=== PATIENT | female | born 1950 | race Caucasian/White ===

== ENCOUNTER 2016-08-08 16:39 | Emergency (ER) | payer MEDICARE, OTHER ==
[~2016-08-08 16:39] MED LIST: ALLEGRA ALLERG180 M1 PO; ANUSOL-HC30 GM APL; ATENOLOL; ATENOLOL100 M1 PO; ATENOLOL100 MG PO; ATENOLOL25 MG PO; BACTRIM DS TABL1 TAB; BALSALAZIDE DI750 M4 PO; BENTYL20 MG PO; CALCIUM500 M4 PO; CANASA1000 MG/SU RC; CENTANY EACH EAR; CLARITIN10 M5 PO; CLOMIPRAMINE HC50 MG PO; COZAAR50 M1 PO; CULTURELLE1 CA1 PO; CULTURELLE1 EAC1 PO; FLUVOXAMINE MA100 M3 PO; FOLIC ACID1 M1 PO; FOLIC ACID1 MG PO; GLUCOPHAGE500 M3 PO; GLUCOPHAGE500 MG PO; GLUCOPHAGE500 MG/TAB PO; HYDROCODON-ACE1 EA16 PO; LEVAQUIN750 MG PO; LISINOPRIL20 MG; LUVOX CR100 MG PO; MELOXICAM15 M1 PO; MUCINEX600 M1 PO; NEURONTIN300 M1 PO; NORVASC5 M1 PO; NORVASC5 M2 PO; PRAVACHOL40 M1 PO; PRAVACHOL40 MG PO; PREDNISONE20 MG; PREDNISONE5 MG PO; PREVACID15 M1 PO; PREVACID30 M2 PO; PREVACID30 MG PO; PRINIVIL20 M1 PO; PROAIR RESPICL90 MCG PO; SINGULAIR10 M1 PO; SINGULAIR10 MG PO; SULFASALAZINE500 M1 PO; SULFASALAZINE500 MG PO; SULFAZINE500 MG PO; SYMBICORT 160-1 PUFF INH; SYMBICORT 80-41 PUFF INH; TYLENOL EXTRA500 M1 PO; TYLENOL500 MG PO; VALIUM5 M1 PO; VENTOLIN HFA18 G2 IH; VITAMIN D250000 UNI1 PO; VITAMIN D32000 UNI3 PO; ZOCOR20 MG; [UNRECOGNIZED DRUG - OTHER] PO
[2016-08-08 17:00] LABS: BASO % 0.3 % (0-2); EOS % 2.1 % (0-7); EOSINOPHIL ABSOLUTE COUNT 0.2 tho/cmm (0.0-0.7); HCT-HEMATOCRIT 41.2 % (34.0-49.0); IMMATURE GRANULOCYTES ABSOLUTE 0.02 tho/cmm (0-0.03); IMMATURE GRANULOCYTES PERCENT 0.3 % (0-0.3); LYMPH % 24.1 % (20-45); LYMPH ABSOLUTE COUNT 1.9 tho/cmm (0.8-4.5); MCH (MEAN CORPUSCULAR HGB) 29.4 pg (28.0-32.0); MCV (MEAN CELL VOLUME) 86.4 fl (82.0-96.0); MEAN PLATELET VOLUME 9.9 cmc (9.4-12.4); MONO % 7.9 % (0-12); MONOCYTE ABSOLUTE COUNT 0.6 tho/cmm (0.0-1.2); NEUTROPHIL ABSOLUTE COUNT 5.2 tho/cmm (1.6-8.0); NEUTROPHIL-AUTOMATED 5.2 tho/cmm (1.6-8.0); NEUTROPHILS % 65.3 % (40-80); PLATELET COUNT 214 tho/cmm (150-450); RED BLOOD COUNT 4.77 mil/cmm (4.00-5.20); RED CELL DISTRIBUTION WIDTH 13.2 % (12.4-16.4)
[2016-08-08] MEDS ORDERED: TYLENOL EXTRA500 M1 PO (17:03)
[2016-08-08] MEDS ORDERED: PREVACID15 M2 PO (17:04)
[2016-08-08] MEDS ORDERED: GLUCOTROL XL10 M1 PO (17:05)
[2016-08-08 17:16] LABS: ANION GAP 12 mmol/L (0-20); BLOOD UREA NITROGEN 14 mg/dl (6-24); CALCIUM 8.7 mg/dl (8.5-10.5); CARBON DIOXIDE-VENOUS 27 mmol/L (22-32); CHLORIDE 105 mmol/l (96-110); GLUCOSE 171 mg/dL (70-110); POTASSIUM 3.6 mmol/L (3.7-5.1); SODIUM 140 mmol/L (135-145); eGFR VALUE FOR BLACK 68 mL/Min
== END 2016-08-08 20:33 ==
LOC: EDMED 16:39
PROVIDERS: Emergency Medicine
DX: R07.89 Other chest pain (principal); E11.9 Type 2 diabetes mellitus without complications; I10 Essential (primary) hypertension; E78.5 Hyperlipidemia, unspecified; Z90.49 Acquired absence of other specified parts of digestive tract
CPT/HCPCS: A9540; A9558